=== PATIENT | female | born 1955 | race Caucasian/White ===

== ENCOUNTER 2016-05-27 10:24 | Day surgery (SDC) | payer BC ==
[~2016-05-27 10:24] MED LIST: ACET500CAP PO; AT25 PO; ATV1 PO; BIST PO; EFFEXOR XR150 MG PO; EFFEXXR75 PO; FLEX PO; GEODON60 MG PO; GEODON80 PO; MIRALAXPKT PO; PRILO PO; PRILOSEC40 MG PO; STOOL SOFTEN240 MG PO; STOOL SOFTENER; TOPAMAX25 PO; TRAZ100 PO; TRAZODONE150 MG PO; ZOCOR20 PO; ZOFRAN4 PO
[2016-07-29] MEDS ORDERED: DSS PO (16:27)
== END 2016-05-27 23:59 | disposition home or self-care (01) ==
LOC: DMU 10:24
PROVIDERS: Internal Medicine Gastroenterology
PROC: 4A1B88Z Monitoring of Gastrointestinal Motility, Via Natural or Artificial Opening Endoscopic (ICD-10-PCS; principal; 2016-05-27 10:30)
DX: R13.10 Dysphagia, unspecified (principal); J44.9 Chronic obstructive pulmonary disease, unspecified; F17.200 Nicotine dependence, unspecified, uncomplicated; Z88.0 Allergy status to penicillin
CPT/HCPCS: A9270-GY; C1894

== ENCOUNTER 2016-08-05 08:09 | Day surgery (SDC) | payer BC ==
--- NOTE | ~2016-08-05 | EGD ---
EGD REPORT [facility] [address] [address] NAME: PAULA SAN : [birth year] STATUS : [facility]#: [id number] AGE: 61 ADM/REG DATE : 08/05/16 MR#: [id number] REPORT SERV DATE: 08/05/16 DICTATED BY: TERENCE DUMONT DATE: 08/05/16 REPORT STATUS : Draft TRANSCRIBED BY: [facility] DATE: 08/05/16 End[facility] Center Patient Name: Paula San Date of : 1955 Attending MD: TERENCE DUMONT MD Procedure Date No Time: 08/05/2016 Procedure: Upper GI endoscopy Indications: Dysphagia Referring MD: Chau Pace MD Medicines: Monitored Anesthesia Care Complications: No immediate complications. Procedure: Pre-Anesthesia Assessment: - ASA Grade Assessment: III - A patient with severe systemic disease. After obtaining informed consent, the endoscope was passed under direct vision. Throughout the procedure, the patient's blood pressure, pulse, and oxygen saturations were monitored continuously. The GIF [id number] was introduced through the mouth, and advanced to the second part of duodenum. The upper GI endoscopy was accomplished without difficulty. The patient tolerated the procedure well. Findings: No endoscopic abnormality was evident in the esophagus to explain the patient's complaint of dysphagia. It was decided, however, to proceed with dilation of the entire esophagus. A guidewire was placed and the scope was withdrawn. Dilation was performed with a Savary dilator with no resistance at 45 Fr. The esophagus and gastroesophageal junction were examined with white light. Su's esophagus was present. One tongue of salmon-colored mucosa was present less than one cm in lenth and two small islands of salmon colored mucosa in the distal esophagus near the GEJ. The maximum longitudinal extent of these esophageal mucosal changes was 1 cm in length. Biopsies were taken with a cold forceps for histology. A few angioectasias with no bleeding were found in the gastric body and in the gastric antrum. A few medium-sized angioectasias without bleeding were found in the duodenal bulb and in the second part of the duodenum. The cardia and gastric fundus were normal on retroflexion. Impression: - No endoscopic esophageal abnormality to explain patient's dysphagia. Esophagus dilated. Dilated. - Su's esophagus. Biopsied. - A few non-bleeding angioectasias in the stomach. EGD REPORT [address] [place]. [address] NAME: PAULA SAN : 53 STATUS : [facility]#: [id number] AGE: 61 ADM/REG DATE : 08/05/16 MR#: [id number] REPORT SERV DATE: 08/05/16 DICTATED BY: TERENCE DUMONT DATE: 08/05/16 REPORT STATUS : Draft TRANSCRIBED BY: [employer] DATE: 08/05/16 - A few non-bleeding angioectasias in the duodenum. Recommendation: - Patient has a contact number available for emergencies. The signs and symptoms of potential delayed complications were discussed with the patient. Return to normal activities tomorrow. Written discharge instructions were provided to the patient. - Regular diet. - Continue present medications. - Await pathology results. - Repeat the upper endoscopy for surveillance based on pathology results. Procedure Code(s): --- Professional --- 16702, Esophagogastroduodenoscopy, flexible, transoral; with insertion of guide wire followed by passage of dilator(s) through esophagus over guide wire 47530, Esophagogastroduodenoscopy, flexible, transoral; with biopsy, single or multiple Diagnosis Code(s): --- Professional --- R13.10, Dysphagia, unspecified K22.70, Su's esophagus without dysplasia K31.819, Angiodysplasia of stomach and duodenum without bleeding CPT copyright 2013 [employer]. All rights reserved. The codes documented in this report are preliminary and upon roadway engineer review may be revised to meet current compliance requirements. TERENCE DUMONT MD 08/05/2016 10:53 AM This report has been signed electronically. Number of Addenda: 0 Note Initiated On: 08/05/2016 10:25 AM Scope Withdrawal Time 0 hours 0 minutes 0 seconds
[~2016-08-05 08:09] MED LIST changes: +DSS PO
== END 2016-08-05 23:59 | disposition home health service (06) ==
LOC: DMU 08:09
PROVIDERS: Internal Medicine Gastroenterology
PROC: 0D758ZZ Dilation of Esophagus, Via Natural or Artificial Opening Endoscopic (ICD-10-PCS; principal; 2016-08-05 10:00)
PROC: 0DB38ZX Excision of Lower Esophagus, Via Natural or Artificial Opening Endoscopic, Diagnostic (ICD-10-PCS; 2016-08-05 10:00)
DX: K20.9 Esophagitis, unspecified (principal); K22.70 Barrett's esophagus without dysplasia; J44.9 Chronic obstructive pulmonary disease, unspecified; M79.7 Fibromyalgia; K31.819 Angiodysplasia of stomach and duodenum without bleeding; F31.9 Bipolar disorder, unspecified; G43.909 Migraine, unspecified, not intractable, without status migrainosus; F41.9 Anxiety disorder, unspecified; Z91.040 Latex allergy status; Z88.0 Allergy status to penicillin; Z88.8 Allergy status to other drugs, medicaments and biological substances; Z88.5 Allergy status to narcotic agent; F17.210 Nicotine dependence, cigarettes, uncomplicated; Z90.49 Acquired absence of other specified parts of digestive tract; Z90.710 Acquired absence of both cervix and uterus; Z98.890 Other specified postprocedural states
CPT/HCPCS: 88305